=== PATIENT | female | born 1990 | race Caucasian/White ===

== ENCOUNTER 2021-01-16 16:37 | Inpatient (IN) | payer OTHER ==
[2021-01-16] MEDS ORDERED: TERBUTALINE 1 MG/1 ML INJ SUB-Q PRN (18:26)
[2021-01-16] MEDS ORDERED: LIDOCAINE (2%) 20 MG/1 ML VIAL 20 ML MDV INFILTRATI ONE (18:26)
[2021-01-16] MEDS ORDERED: ePHEDrine SULFATE 50 MG/1 ML INJ IV PRN (18:26)
[2021-01-16] MEDS ORDERED: MINERAL OIL 30 ML ORAL LIQD PO PRN (18:26)
[2021-01-16] MEDS ORDERED: DINOPROSTONE 10 MG VAG SUPP VG ONE (18:30)
[2021-01-16] MEDS ORDERED: OXYTOCIN DRIP 30 UNITS/500 ML BAG IV SCH ×2 (19:00)
--- NOTE | 2021-01-16 19:07 | History and Physical Report ---
History of Present Illness Date of examination: 01/16/21 Date of admission: 01/16/21 16:37 History of present illness: PT is a at 38 weeks who was schedule for IOL for CHTN and GDMA1. GBS neg. Past History Past Medical History: asthma, hypertension, other (GDMA1, alpha thalassemia trait, depression (no meds)) Past Surgical History: other (digit removed as an ) - Obstetrical History : 1 Medications and Allergies Allergies Allergy/AdvReac Type Severity Reaction Status Date / Time No Known Allergies Allergy Unverified 01/16/21 17:21 Active Meds: Active Medications Ephedrine Sulfate (Ephedrine Sulfate 50 Mg/1 Ml Inj) 10 mg IV Q2M PRN PRN Reason: Hypotension Oxytocin/Sodium Chloride (Pitocin/Ns 30 Unit/500ml) 30 units in 500 mls @ 2 mls/hr IV TITR TEX; Protocol Lactated Ringer's (Lactated Ringers) 1,000 mls @ 125 mls/hr IV DIRECT TEX Oxytocin/Sodium Chloride (Pitocin/Ns 30 Unit/500ml) 30 units in 500 mls @ 40 mls/hr IV TITR TEX; Protocol Mineral Oil (Mineral Oil 30 Ml Oral Liqd) 30 ml PO QHS PRN PRN Reason: Constipation Terbutaline Sulfate (Terbutaline 1 Mg/1 Ml Inj) 0.25 mg SUB-Q ONCE PRN PRN Reason: Hyperstimulation/Hypertonicity Review of Systems All systems: negative (except HPI) - Vital Signs Vital signs: Vital Signs Temp Pulse Resp BP Pulse Ox 99.1 F 88 18 140/88 97 01/16/21 17:33 01/16/21 17:33 01/16/21 17:33 01/16/21 17:33 01/16/21 17:33 Temp Pulse Resp BP Pulse Ox 99.1 F 94 H 18 140/88 97 01/16/21 17:33 01/16/21 18:59 01/16/21 17:33 01/16/21 17:39 01/16/21 18:59 - Obstetrical FHR: category 1 Cervical Dilatation: 0 (per RN) Cervical Effacement Percentage: 0 Uterine Contraction Pattern: Irregular Results All other labs normal. Assessment and Plan - Patient Problems (1) HTN (hypertension) Current Visit: Yes Status: Acute Plan to address problem: Will start IOL with cervidil. Expectant care. (2) Gestational diabetes Current Visit: Yes Status: Acute Plan to address problem: Will check BG and continue to monitor.
[2021-01-16 19:28] LABS: Hematocrit 37.1 % (30.3-42.9); Hemoglobin 12.4 gm/dl (10.1-14.3)
[2021-01-16] MEDS: LACTATED RINGERS 1,000 ML IV SCH ×2 (20:04→23:37)
[2021-01-17] MEDS ORDERED: BUTORPHANOL 2 MG/1 ML INJ IV PRN (03:40)
[2021-01-17 07:14] LABS: Hemoglobin 12.1 gm/dl (10.1-14.3); Mean Corpuscular HGB Conc 32 % (30-34); Mean Corpuscular Volume 77 fl (79-97); Platelet Count 266 K/mm3 (140-440); Red Blood Count 4.94 M/mm3 (3.65-5.03); Red Cell Distribution Width 15.3 % (13.2-15.2)
[2021-01-17] MEDS: LACTATED RINGERS 1,000 ML IV SCH ×2 (10:41→14:41)
--- NOTE | 2021-01-17 10:42 | Progress Note ---
Assessment and Plan A: IUP@ 38 wks CHTN;GDMA1 GBS neg P: Continue monitoring Pain med/Epidural prn Anticipate progress - Patient Problems (1) Supervision of normal IUP (intrauterine ) in primigravida Current Visit: Yes Status: Acute Subjective - Subjective Date of service: 01/17/21 Principal diagnosis: IUP@ 38 wks, CHTN, GDMA1 Patient reports: movement normal Objective - Vital Signs Vital Signs: Vital Signs - 12hr 01/16/21 01/16/21 01/16/21 22:38 22:39 22:43 Temperature Pulse Rate 89 83 91 H Respiratory Rate Blood Pressure 144/80 O2 Sat by Pulse 95 95 Oximetry 01/16/21 01/16/21 01/16/21 22:48 22:52 22:53 Temperature Pulse Rate 87 88 93 H Respiratory Rate Blood Pressure 146/81 O2 Sat by Pulse 97 96 Oximetry 01/16/21 01/16/21 01/16/21 22:54 22:58 23:03 Temperature Pulse Rate 82 89 85 Respiratory Rate Blood Pressure 142/74 O2 Sat by Pulse 97 96 Oximetry 01/16/21 01/16/21 01/16/21 23:08 23:09 23:13 Temperature Pulse Rate 78 81 84 Respiratory Rate Blood Pressure 133/77 O2 Sat by Pulse 96 96 Oximetry 01/16/21 01/16/21 01/16/21 23:18 23:23 23:25 Temperature Pulse Rate 88 81 82 Respiratory Rate Blood Pressure 141/82 O2 Sat by Pulse 97 97 Oximetry 01/16/21 01/16/21 01/17/21 23:28 23:54 00:09 Temperature Pulse Rate 82 84 83 Respiratory Rate Blood Pressure 120/73 137/72 O2 Sat by Pulse 97 Oximetry 01/17/21 01/17/21 01/17/21 00:23 00:40 00:41 Temperature 98.2 F Pulse Rate 80 81 Respiratory 16 Rate Blood Pressure 140/68 206/76 O2 Sat by Pulse Oximetry 01/17/21 01/17/21 01/17/21 01:16 01:25 01:38 Temperature Pulse Rate 78 75 72 Respiratory Rate Blood Pressure 115/56 129/71 130/74 O2 Sat by Pulse Oximetry 01/17/21 01/17/21 01/17/21 01:54 02:09 02:25 Temperature Pulse Rate 77 85 88 Respiratory Rate Blood Pressure 139/65 127/68 123/74 O2 Sat by Pulse Oximetry 01/17/21 01/17/21 01/17/21 02:40 02:53 03:09 Temperature Pulse Rate 85 86 89 Respiratory Rate Blood Pressure 116/59 125/62 123/65 O2 Sat by Pulse Oximetry 01/17/21 01/17/21 01/17/21 03:24 03:39 03:54 Temperature Pulse Rate 90 90 96 H Respiratory Rate Blood Pressure 123/66 131/74 131/66 O2 Sat by Pulse Oximetry 01/17/21 01/17/21 01/17/21 04:08 04:24 04:38 Temperature Pulse Rate 86 83 94 H Respiratory Rate Blood Pressure 129/66 132/75 131/71 O2 Sat by Pulse Oximetry 01/17/21 01/17/21 01/17/21 04:55 05:10 06:11 Temperature Pulse Rate 85 93 H 88 Respiratory Rate Blood Pressure 124/60 131/73 129/78 O2 Sat by Pulse Oximetry 01/17/21 01/17/21 01/17/21 06:19 06:21 06:26 Temperature Pulse Rate 80 86 97 H Respiratory Rate Blood Pressure 142/78 O2 Sat by Pulse 97 97 Oximetry 01/17/21 01/17/21 01/17/21 06:31 06:36 06:41 Temperature Pulse Rate 88 87 88 Respiratory Rate Blood Pressure O2 Sat by Pulse 97 97 97 Oximetry 01/17/21 01/17/21 01/17/21 07:08 07:13 07:18 Temperature Pulse Rate 95 H 88 88 Respiratory Rate Blood Pressure 144/74 O2 Sat by Pulse 97 97 97 Oximetry 01/17/21 01/17/21 01/17/21 07:23 07:28 07:30 Temperature 100.2 F H Pulse Rate 89 94 H Respiratory Rate Blood Pressure O2 Sat by Pulse 97 98 Oximetry 01/17/21 01/17/21 01/17/21 07:33 07:38 07:43 Temperature Pulse Rate 91 H 94 H 90 Respiratory Rate Blood Pressure O2 Sat by Pulse 97 98 97 Oximetry 01/17/21 01/17/21 01/17/21 07:48 07:53 07:58 Temperature Pulse Rate 79 80 82 Respiratory Rate Blood Pressure O2 Sat by Pulse 97 96 95 Oximetry 01/17/21 01/17/2121 08:03 08:08 08:12 Temperature Pulse Rate 86 83 80 Respiratory Rate Blood Pressure O2 Sat by Pulse 95 95 94 Oximetry 01/17/21 01/17/21 01/17/21 08:13 08:18 08:20 Temperature Pulse Rate 81 81 83 Respiratory Rate Blood Pressure O2 Sat by Pulse 95 95 94 Oximetry 01/17/21 01/17/21 01/17/21 08:23 08:28 08:33 Temperature Pulse Rate 84 81 84 Respiratory Rate Blood Pressure O2 Sat by Pulse 96 96 96 Oximetry 01/17/21 01/17/21 01/17/21 08:38 08:43 08:48 Temperature Pulse Rate 82 89 81 Respiratory Rate Blood Pressure O2 Sat by Pulse 96 97 96 Oximetry 01/17/21 01/17/21 01/17/21 08:53 08:58 09:03 Temperature Pulse Rate 83 85 89 Respiratory Rate Blood Pressure O2 Sat by Pulse 96 96 97 Oximetry 01/17/21 01/17/21 01/17/21 09:08 09:13 09:18 Temperature Pulse Rate 86 88 87 Respiratory Rate Blood Pressure O2 Sat by Pulse 96 97 97 Oximetry 01/17/21 01/17/21 01/17/21 09:23 09:28 09:33 Temperature Pulse Rate 90 86 92 H Respiratory Rate Blood Pressure O2 Sat by Pulse 97 97 96 Oximetry 01/17/21 01/17/21 01/17/21 09:38 09:43 09:48 Temperature Pulse Rate 91 H 81 91 H Respiratory Rate Blood Pressure O2 Sat by Pulse 97 98 98 Oximetry 01/17/21 01/17/21 01/17/21 09:53 10:12 10:17 Temperature Pulse Rate 86 91 H 88 Respiratory Rate Blood Pressure O2 Sat by Pulse 98 97 97 Oximetry 01/17/21 01/17/21 01/17/21 10:22 10:27 10:32 Temperature Pulse Rate 80 89 108 H Respiratory Rate Blood Pressure O2 Sat by Pulse 97 97 97 Oximetry 01/17/21 10:34 Temperature Pulse Rate 63 Respiratory Rate Blood Pressure O2 Sat by Pulse 92 Oximetry - Exam Breasts: normal Abdomen: Present: normal appearance, soft, normal bowel sounds, other (GRAVID) Vulva: both: normal Uterus: Present: normal, other (GRAVID) FHR: auscultation normal, category 1 Uterine Contraction Monitor Mode: External Cervical Dilatation: 3.5 Cervical Effacement Percentage: 60 station: -2 Uterine Contraction Frequency (min): irreg Uterine Contraction Pattern: Irregular Uterine Tone Measurement Phase: Resting Uterine Contraction Intensity: Mild Extremities: normal - Labs Labs: Abnormal Labs 01/17/21 03:37 WBC 14.8 H MCV 77 L MCH 25 L RDW 15.3 H Laboratory Results - last 24 hr 01/16/21 01/16/21 01/16/21 17:51 17:51 20:01 WBC RBC Hgb 12.4 Hct 37.1 MCV MCH MCHC RDW Plt Count POC Glucose 80 Blood Type B POSITIVE Antibody Screen Negative 01/17/21 03:37 WBC 14.8 H RBC 4.94 Hgb 12.1 Hct 38.0 MCV 77 L MCH 25 L MCHC 32 RDW 15.3 H Plt Count 266 POC Glucose Blood Type Antibody Screen
--- NOTE | 2021-01-17 15:19 | Event Note ---
Date: 01/17/21 FHT 142 with mod mandeep and late decels. UC q 3-5/ min with Pitocin @ 6mu. SVE 4- 5/80%/ -2 with calput and molding. IUPC and IFM placed along with resuscitative measures ie. O2, position changes, etc. Dr Nick was notified.
--- NOTE | 2021-01-17 15:20 | Progress Note ---
Subjective - Subjective Date of service: 01/17/21 Principal diagnosis: IUP@ 38 wks, CHTN, GDMA1 Interval history: Patient with IUPC and FSE in place Oxytocin on home secondary to repetitive late variables heart tones recovered to baseline with moderate variability Category 2 tracing Cervix 4 cm with edema on the anterior lip of the cervix vertex with significant molding and caput Suspect asynclitic presentation Plan for operative delivery for failed induction of labor Patient and father the baby agree with plan of care Informed consent obtained N.p.o. Anesthesia notified On hold for OR Chante Nick MD Patient reports: movement normal Objective - Vital Signs Vital Signs: Vital Signs - 12hr 01/17/21 01/17/21 01/17/21 03:24 03:39 03:54 Temperature Pulse Rate 90 90 96 H Blood Pressure 123/66 131/74 131/66 O2 Sat by Pulse Oximetry 01/17/21 01/17/21 01/17/21 04:08 04:24 04:38 Temperature Pulse Rate 86 83 94 H Blood Pressure 129/66 132/75 131/71 O2 Sat by Pulse Oximetry 01/17/21 01/17/21 01/17/21 04:55 05:10 06:11 Temperature Pulse Rate 85 93 H 88 Blood Pressure 124/60 131/73 129/78 O2 Sat by Pulse Oximetry 01/17/21 01/17/21 01/17/21 06:19 06:21 06:26 Temperature Pulse Rate 80 86 97 H Blood Pressure 142/78 O2 Sat by Pulse 97 97 Oximetry 01/17/21 01/17/21 01/17/21 06:31 06:36 06:41 Temperature Pulse Rate 88 87 88 Blood Pressure O2 Sat by Pulse 97 97 97 Oximetry 01/17/21 01/17/21 01/17/21 07:00 07:08 07:13 Temperature 100.2 F H Pulse Rate 82 95 H 88 Blood Pressure 144/74 O2 Sat by Pulse 97 97 Oximetry 01/17/21 01/17/21 01/17/21 07:18 07:23 07:28 Temperature Pulse Rate 88 89 94 H Blood Pressure O2 Sat by Pulse 97 97 98 Oximetry 01/17/21 01/17/21 01/17/21 07:30 07:33 07:38 Temperature 100.2 F H Pulse Rate 91 H 94 H Blood Pressure O2 Sat by Pulse 97 98 Oximetry 01/17/21 01/17/21 01/17/21 07:43 07:48 07:53 Temperature Pulse Rate 90 79 80 Blood Pressure O2 Sat by Pulse 97 97 96 Oximetry 01/17/21 01/17/21 01/17/21 07:58 08:03 08:08 Temperature Pulse Rate 82 86 83 Blood Pressure O2 Sat by Pulse 95 95 95 Oximetry 01/17/21 01/17/21 01/17/21 08:12 08:13 08:18 Temperature Pulse Rate 80 81 81 Blood Pressure O2 Sat by Pulse 94 95 95 Oximetry 01/17/21 01/17/21 01/17/21 08:20 08:23 08:28 Temperature Pulse Rate 83 84 81 Blood Pressure O2 Sat by Pulse 94 96 96 Oximetry 01/17/21 01/17/21 01/17/21 08:33 08:38 08:43 Temperature Pulse Rate 84 82 89 Blood Pressure O2 Sat by Pulse 96 96 97 Oximetry 01/17/21 01/17/21 01/17/21 08:48 08:53 08:58 Temperature Pulse Rate 81 83 85 Blood Pressure O2 Sat by Pulse 96 96 96 Oximetry 01/17/21 01/17/21 01/17/21 09:03 09:08 09:13 Temperature Pulse Rate 89 86 88 Blood Pressure O2 Sat by Pulse 97 96 97 Oximetry 01/17/21 01/17/21 01/17/21 09:18 09:23 09:28 Temperature Pulse Rate 87 90 86 Blood Pressure O2 Sat by Pulse 97 97 97 Oximetry 01/17/21 01/17/21 01/17/21 09:33 09:38 09:43 Temperature Pulse Rate 92 H 91 H 81 Blood Pressure O2 Sat by Pulse 96 97 98 Oximetry 01/17/21 01/17/21 01/17/21 09:48 09:53 10:00 Temperature 98.8 F Pulse Rate 91 H 86 100 H Blood Pressure O2 Sat by Pulse 98 98 Oximetry 01/17/21 01/17/21 01/17/21 10:12 10:17 10:22 Temperature Pulse Rate 91 H 88 80 Blood Pressure O2 Sat by Pulse 97 97 97 Oximetry 01/17/21 01/17/21 01/17/21 10:27 10:32 10:34 Temperature Pulse Rate 89 108 H 63 Blood Pressure O2 Sat by Pulse 97 97 92 Oximetry 01/17/21 01/17/21 01/17/21 10:37 10:42 10:44 Temperature Pulse Rate 89 86 91 H Blood Pressure 142/83 O2 Sat by Pulse 98 98 94 Oximetry 01/17/21 01/17/21 01/17/21 10:47 10:51 10:52 Temperature Pulse Rate 87 92 H 93 H Blood Pressure 142/83 O2 Sat by Pulse 97 97 Oximetry 01/17/21 01/17/21 01/17/21 10:57 11:02 11:07 Temperature Pulse Rate 88 86 85 Blood Pressure O2 Sat by Pulse 98 97 97 Oximetry 01/17/21 01/17/21 01/17/21 11:12 11:17 11:22 Temperature Pulse Rate 93 H 84 88 Blood Pressure O2 Sat by Pulse 96 97 98 Oximetry 01/17/21 01/17/21 01/17/21 11:27 11:32 11:37 Temperature Pulse Rate 87 86 88 Blood Pressure O2 Sat by Pulse 97 97 97 Oximetry 01/17/21 01/17/21 01/17/21 11:42 11:47 11:52 Temperature Pulse Rate 85 83 88 Blood Pressure O2 Sat by Pulse 98 98 97 Oximetry 01/17/21 01/17/21 01/17/21 11:57 12:02 12:07 Temperature Pulse Rate 84 92 H 88 Blood Pressure O2 Sat by Pulse 97 97 97 Oximetry 01/17/21 01/17/21 01/17/21 12:12 12:17 12:22 Temperature Pulse Rate 83 86 85 Blood Pressure O2 Sat by Pulse 97 97 97 Oximetry 01/17/21 01/17/21 01/17/21 12:27 12:32 12:37 Temperature Pulse Rate 87 81 85 Blood Pressure O2 Sat by Pulse 97 97 96 Oximetry 01/17/21 01/17/21 01/17/21 12:42 12:47 12:52 Temperature Pulse Rate 86 89 91 H Blood Pressure O2 Sat by Pulse 97 97 98 Oximetry 01/17/21 01/17/21 01/17/21 13:17 13:47 13:52 Temperature Pulse Rate 101 H 89 91 H Blood Pressure 141/83 O2 Sat by Pulse 97 96 Oximetry 01/17/21 01/17/21 01/17/21 13:57 14:02 14:07 Temperature Pulse Rate 86 80 78 Blood Pressure O2 Sat by Pulse 97 98 98 Oximetry 01/17/21 01/17/21 01/17/21 14:12 14:16 14:17 Temperature Pulse Rate 100 H 79 90 Blood Pressure 162/81 121/58 O2 Sat by Pulse 97 96 Oximetry 01/17/21 01/17/21 01/17/21 14:22 14:27 14:32 Temperature Pulse Rate 86 83 87 Blood Pressure O2 Sat by Pulse 96 98 98 Oximetry 01/17/21 01/17/21 01/17/21 14:34 14:37 14:42 Temperature Pulse Rate 95 H 85 83 Blood Pressure O2 Sat by Pulse 90 100 99 Oximetry 01/17/21 01/17/21 01/17/21 14:47 14:52 14:57 Temperature Pulse Rate 82 79 70 Blood Pressure O2 Sat by Pulse 100 99 100 Oximetry 01/17/21 01/17/21 01/17/21 15:02 15:07 15:12 Temperature Pulse Rate 87 74 89 Blood Pressure O2 Sat by Pulse 100 100 100 Oximetry 01/17/21 15:17 Temperature Pulse Rate 83 Blood Pressure O2 Sat by Pulse 100 Oximetry - Labs Labs: Abnormal Labs 01/17/21 03:37 WBC 14.8 H MCV 77 L MCH 25 L RDW 15.3 H Laboratory Results - last 24 hr 01/16/21 01/16/21 01/16/21 17:51 17:51 20:01 WBC RBC Hgb 12.4 Hct 37.1 MCV MCH MCHC RDW Plt Count POC Glucose 80 Coronavirus (PCR) Blood Type B POSITIVE Antibody Screen Negative 01/17/21 01/17/21 01/17/21 00:39 03:37 06:41 WBC 14.8 H RBC 4.94 Hgb 12.1 Hct 38.0 MCV 77 L MCH 25 L MCHC 32 RDW 15.3 H Plt Count 266 POC Glucose 90 86 Coronavirus (PCR) Blood Type Antibody Screen 01/17/21 Unknown WBC RBC Hgb Hct MCV MCH MCHC RDW Plt Count POC Glucose Coronavirus (PCR) Negative Blood Type Antibody Screen
--- NOTE | 2021-01-17 15:21 | Procedure Note ---
OB Delivery Note - Delivery Date of Delivery: 01/17/21 Surgeon: ELO MESSINA Estimated blood loss: other (800ml) - Section Preop diagnosis: other (failed IOL, suspect asynclitic presentation) Postop diagnosis: same section procedure: primary low transverse Complications: none Narrative: Preop diagnosis: IUP at 38.1 weeks, failed induction of labor for suspected malpresentation Postop diagnosis: Same, delivered Procedure: Primary low transverse section via Pfannenstiel incision Surgeon: Dr. Elo Messina Anesthesia spinal Complications none EBL 800 ml IV fluids thousand mL Urine output 300 mL, clear Drains Patterson to gravity Findings: Viable female with weight 2522gms and 8/9, normal uterus tubes and ovaries bilaterally Procedure: Patient was consented in 2011 for opertive delivery, then taken to the operating room where she received excellent spinal anesthesia. She was then placed in the dorsal supine position with a leftward tilt. The abdomen was prepped and draped in a sterile fashion, and a timeout was verified. Adequate anesthesia was confirmed prior to the skin incision. A Pfannenstiel skin incision was made with a scalpel taken down to the underlying structures and the fascia was incised in the midline. The incision was extended laterally with cu rved Roque scissors, the superior and inferior aspects of the fascial incisions were grasped with Collin clamps and the rectus muscles dissected sharply. The abdomen was entered bluntly in the midline carried down inferiorly with good visualization of the bladder. The vesicouterine peritoneum was tented with Latvian forceps and incised in the midline with Metzenbaum scissors and the vesicouterine peritoneum taken down sharply. Bladder blade was inserted, the uterine incision was made sharply with a scalpel. The inferior and superior aspect of the uterine incisions were extended bluntly, the baby's head was delivered atraumatically. The remainder of the delivery was uncomplicated, no nuchal cord. The cord was clamped and cut and baby handed to waiting NICU team. An intact placenta with three-vessel cord delivered manually. The uterus was then cleared of all clots and debris and the uterus exteriorized. The uterine incision was closed with 2 layers of 0 chromic with excellent hemostasis. The abdomen was then irrigated with warm normal saline and the uterus placed back into the abdomen atraumatically. A second look at the uterine incision assured hemostasis. The peritoneum was closed with 3-0 Vicryl, the rectus muscles approximated with 3-0 Vicryl, and the fascia closed with 0 Vicryl in the usual fashion. The subcuticular structures were closed with interrupted sutures of 3- 0 Vicryl and the skin closed with 4-0 Monocryl. A pressure dressing was applied. All sponge needle and instrument counts were correct x2. There were no complications. Mom and baby stable to PACU. EBL 600mL Chante Messina MD
[2021-01-17] MEDS ORDERED: FAMOTIDINE 20 MG/2 ML INJ IV ONE (15:38)
[2021-01-17] MEDS ORDERED: METOCLOPRAMIDE 10 MG/2 ML INJ IV ONE (15:38)
[2021-01-17] MEDS ORDERED: BICITRA ORAL LIQD 30ML PO ONE (15:38)
--- NOTE | 2021-01-17 15:38 | Anesthesia Day of Surgery ---
Anesthesia Day of Surgery - Day of Surgery Patient Examined: Yes Patient H&P Reviewed: Yes Patient is NPO: Yes Beta Blockers: No Cardiac Clearance: No Pulmonary Clearance: No Shekhar's Test: N/A
[2021-01-17] MEDS ORDERED: HYDROmorphone 1 MG/1 ML INJ IV PRN (15:39)
[2021-01-17] MEDS ORDERED: ONDANSETRON 4 MG/2 ML INJ IV PRN ×2 (15:39→17:45)
[2021-01-17] MEDS ORDERED: NALOXONE 0.4 MG/1 ML INJ IV PRN ×2 (15:39→17:45)
--- NOTE | 2021-01-17 15:39 | Anesthesia Consultation ---
Anesthesia Consult and Med Hx Date of service: 01/17/21 - Airway Anesthetic Teeth Evaluation: Poor ROM Head & Neck: Adequate Mental/Hyoid Distance: Adequate Mallampati Class: Class III Intubation Access Assessment: Possibly Difficult - Pulmonary Exam CTA: Yes - Cardiac Exam Cardiac Exam: RRR - Pre-Operative Health Status ASA Pre-Surgery Classification: ASA3 Proposed Anesthetic Plan: Spinal - Pulmonary Hx Smoking: No Hx Asthma: Yes (last attach many years ago) Hx Respiratory Symptoms: No SOB: No COPD: No Home Oxygen Therapy: No Hx Pneumonia: No Hx Sleep Apnea: No - Cardiovascular System Hx Hypertension: Yes Hx Coronary Artery Disease: No Hx Heart Attack/AMI: No Hx Angina: No Hx Percutaneous Transluminal Coronary Angioplasty (PTCA): No Hx Cardia Arrhythmia: No Hx Pacemaker: No Hx Internal Defibrillator: No Hx Valvular Heart Disease: No Hx Heart Murmur: No Hx Peripheral Vascular Disease: No - Central Nervous System Hx Neuromuscular Disorder: No Hx Seizures: No CVA: No Hx Back Pain: Yes Hx Psychiatric Problems: No - Gastrointestinal Hx Ulcer: No Hx Gastroesophageal Reflux Disease: Yes - Endocrine Hx Renal Disease: No Hx End Stage Renal Disease: No Hx Cirrhosis: No Hx Liver Disease: No Hx Insulin Dependent Diabetes: No Hx Non-Insulin Dependent Diabetes: Yes Hx Thyroid Disease: No Hx Hypothyroidism: No Hx Hyperthyroidism: No - Hematic Hx Anemia: No Hx Sickle Cell Disease: No - Other Systems Hx Alcohol Use: No Hx Substance Use: No Hx Cancer: No Hx Obesity: Yes
[2021-01-17] MEDS ORDERED: LACTATED RINGERS 1,000 ML IV SCH (15:45)
[2021-01-17] MEDS ORDERED: ONDANSETRON 4 MG/2 ML INJ ONE ×2 (15:46)
[2021-01-17] MEDS ORDERED: ceFAZolin/Water 2 GM/20 ML 2 GM/20 ML SYRINGE IV ONE (16:04)
[2021-01-17] MEDS ORDERED: LACTATED RINGERS 1,000 ML ONE (16:20)
[2021-01-17] MEDS ORDERED: PHENYLEPHRINE/NS 1,000 MCG/10 ML SYRINGE (OR USE) IV ONE (16:33)
[2021-01-17] MEDS ORDERED: ceFAZolin/STERILE WATER 2 GM/20 ML SYRINGE IV ONE (16:49)
[2021-01-17] MEDS ORDERED: MORPHINE 4 MG/1 ML INJ IV PRN (17:45)
[2021-01-17] MEDS ORDERED: MAGNESIUM HYDROXIDE (MOM) ORAL LIQD UDC PO PRN (17:45)
[2021-01-17] MEDS ORDERED: WITCH HAZEL/ GLYCERIN PAD TP PRN (17:45)
[2021-01-17] MEDS ORDERED: SIMETHICONE 80 MG CHEW TAB PO PRN (17:45)
[2021-01-17] MEDS ORDERED: LANOLIN/ZINC/DIMETHICONE (LANSINOH) 7 GM TP PRN (17:45)
[2021-01-17] MEDS ORDERED: SENNOSIDES 8.6 MG TAB PO PRN (17:45)
[2021-01-17] MEDS ORDERED: MORPHINE 2 MG/1 ML INJ IV PRN (17:45)
[2021-01-17] MEDS ORDERED: KETOROLAC 30 MG/1 ML INJ IV PRN (17:45)
[2021-01-17] MEDS ORDERED: IBUPROFEN 600 MG TAB PO PRN (17:45)
--- NOTE | 2021-01-17 17:59 | Progress Note ---
Spinal Anesthesia Block - Spinal Anesthesia Block Start Time: 16:24 Stop Time: 16:30 Performed by:: BÁRBARA ARIAS Procedure: Patient IDed, H&P reviewed, all questions and concerns were answered, and consent was signed. Timeout was performed at bedside. Patient in sitting position. Sterile prep and drape was performed. [3] ml of 1% lidocaine skin wheal at L[3]- L [4]. Needle introducer advanced. 25 gauge spinal needle advanced. Clear, free flowing CSF. negative blood, negative paresthesia. Spinal dose given. All needles removed. Patient tolerated procedure.
[2021-01-17] MEDS ORDERED: OXYTOCIN DRIP 30 UNITS/500 ML BAG IV SCH (18:00)
[2021-01-18] MEDS: LACTATED RINGERS 1,000 ML IV SCH (04:01)
[2021-01-18 08:15] LABS: Hematocrit 36.1 % (30.3-42.9); Hemoglobin 11.8 gm/dl (10.1-14.3)
[2021-01-18] MEDS: HYDROcodone/ACETAMINOPHEN 5-325 MG TAB PO PRN ×2 (09:08→16:18)
[2021-01-18] MEDS: IBUPROFEN 800 MG TAB PO PRN ×2 (11:38→18:18)
--- NOTE | 2021-01-18 19:49 | Progress Note ---
Assessment and Plan POD#1 C/Section doing well 1. Routine postop care 2. Dressing removed and pt taught how to keep same clean and dry 3. Pt encouraged to ambulate when pain relieved by meds Subjective Date of service: 01/18/21 Principal diagnosis: IUP@ 38 wks, CHTN, GDMA1 Interval history: pt admits to voiding without difficulty, pain controlled with meds but she still moves slowly out of bed. pt admits to passing flatus and vaginal bleeding less than a period. pt tolerates regular diet without N/V Objective - Constitutional Vitals: Vital Signs - 12hr 01/18/21 01/18/21 01/18/21 08:50 09:08 11:38 Temperature 98.2 F Pulse Rate 87 80 Respiratory 18 18 18 Rate Blood Pressure 125/55 Blood Pressure 118/76 [Left] O2 Sat by Pulse 100 Oximetry 01/18/21 01/18/21 01/18/21 12:01 16:18 16:50 Temperature 98.6 F 98.4 F Pulse Rate 92 H 84 Respiratory 18 18 18 Rate Blood Pressure Blood Pressure 125/86 115/77 [Left] O2 Sat by Pulse 100 98 Oximetry General appearance: Present: no acute distress - Respiratory Respiratory effort: normal - Breasts Breasts: normal - Cardiovascular Rhythm: regular Extremities: no ischemia - Gastrointestinal General gastrointestinal: Present: non-tender (obese; Incision with dressing intact and when same removed by me steristrips and dermabond in place and dry towlette placed below pannus) - Genitourinary Female genitourinary: other (Lochia scant) - Neurologic Neurologic: moves all extremities - Psychiatric Psychiatric: appropriate mood/affect - Labs CBC & Chem 7: 01/18/21 07:21 Medications & Allergies - Medications Allergies/Adverse Reactions: Allergies No Known Allergies Allergy (Unverified 01/16/21 17:21) Home Medications: Home Medications Medication Instructions Recorded Confirmed Last Taken Type Ibuprofen [Motrin] 600 mg PO Q8H PRN #30 tablet 01/17/21 Unknown Rx oxyCODONE /ACETAMINOPHEN [Percocet 1 tab PO Q6HR PRN #20 tablet 01/17/21 Unknown Rx 5/325] Active Medications: Generic Name Dose Route Start Last Admin Trade Name Freq PRN Reason Stop Dose Admin Hydrocodone Bitart/Acetaminophen 1 each 01/17/21 17:45 01/18/21 16:18 Hydrocodone/Acetaminophen 5-325 Mg Tab PO 1 each Q6H PRN Administration Pain, Moderate (4-6) Butorphanol Tartrate 2 mg 01/17/21 03:40 Butorphanol 2 Mg/1 Ml Inj IV Q2H PRN Labor Pain Ephedrine Sulfate 10 mg 01/16/21 18:26 Ephedrine Sulfate 50 Mg/1 Ml Inj IV Q2M PRN Hypotension Hydromorphone HCl 0.5 mg 01/17/21 15:39 Hydromorphone 1 Mg/1 Ml Inj IV Q5M PRN BREAK Oxytocin/Sodium Chloride 30 units in 500 mls @ 2 mls/hr 01/16/21 19:00 01/17/21 14:30 Pitocin/Ns 30 Unit/500ml IV 0 ml/hr TITR TEX 0 mls/hr Titration Protocol Lactated Ringer's 1,000 mls @ 125 mls/hr 01/16/21 18:30 01/18/21 04:01 Lactated Ringers IV 999 mls/hr DIRECT TEX Administration Oxytocin/Sodium Chloride 30 units in 500 mls @ 40 mls/hr 01/16/21 19:00 Pitocin/Ns 30 Unit/500ml IV TITR TEX Protocol Oxytocin/Sodium Chloride 30 units in 500 mls @ 40 mls/hr 01/17/21 18:00 Pitocin/Ns 30 Unit/500ml IV TITR [facility] Protocol Ibuprofen 800 mg 01/17/21 17:45 01/18/21 18:18 Ibuprofen 800 Mg Tab PO 800 mg Q6H PRN Administration Pain, Mild (1-3) Ketorolac Tromethamine 30 mg 01/17/21 17:45 01/18/21 02:09 Ketorolac 30 Mg/1 Ml Inj IV 01/22/21 17:44 30 mg Q6H PRN Administration Pain, Moderate (4-6) Labetalol HCl 100 mg 01/16/21 22:00 01/18/21 11:38 Labetalol 100 Mg Tab PO 100 mg BID TEX Administration Magnesium Hydroxide 30 ml 01/17/21 17:45 Magnesium Hydroxide (Mom) Oral Liqd Udc PO QHS PRN Constip Unrelieved By Senna Mineral Oil 30 ml 01/16/21 18:26 Mineral Oil 30 Ml Oral Liqd PO QHS PRN Constipation Morphine Sulfate 2 mg 01/17/21 17:45 Morphine 2 Mg/1 Ml Inj IV Q4H PRN Pain, Moderate (4-6) Morphine Sulfate 4 mg 01/17/21 17:45 01/17/21 22:33 Morphine 4 Mg/1 Ml Inj IV 4 mg Q4H PRN Administration Pain , Severe (7-10) Multi-Ingredient Ointment 1 applic 01/17/21 17:45 Lanolin/Zinc/Dimethicone (Lansinoh) 7 Gm TP PRN PRN dryness/cracking Naloxone HCl 0.1 mg 01/17/21 17:45 Naloxone 0.4 Mg/1 Ml Inj IV Q2MIN PRN Res Rate </= 8 or 02 SAT < 92% Ondansetron HCl 4 mg 01/17/21 17:45 Ondansetron 4 Mg/2 Ml Inj IV Q8H PRN Nausea And Vomiting Senna 17.2 mg 01/17/21 17:45 Sennosides 8.6 Mg Tab PO QHS PRN Constipation Simethicone 80 mg 01/17/21 17:45 Simethicone 80 Mg Chew Tab PO Q6H PRN Gas pain Sodium Chloride 10 ml 01/17/21 18:00 Sodium Chloride 0.9% 10 Ml Flush Syringe IV PRN TEX Terbutaline Sulfate 0.25 mg 01/16/21 18:26 Terbutaline 1 Mg/1 Ml Inj SUB-Q ONCE PRN Hyperstimulation/Hypertonicity Witch Charissa/Glycerin 1 each 01/17/21 17:45 Witch Charissa/ Glycerin Pad TP PRN PRN Hemorrhoids/cleansing/soothing
[2021-01-19] MEDS: HYDROcodone/ACETAMINOPHEN 5-325 MG TAB PO PRN ×2 (03:21→17:55)
--- NOTE | 2021-01-19 06:41 | Progress Note ---
Assessment and Plan A: /postop day 2 S/P primary LTCS. P: Encouraged patient to ambulate in halls today. Continue routine /postop care. Anticipate discharge home tomorrow if patient continues to do well. Subjective - Subjective Date of service: 01/19/21 Principal diagnosis: /postop day 2 S/P primary LTCS Interval history: Doing well. Patient reports: appetite normal, voiding normally, pain well controlled, flatus, ambulating normally, no dizzy ambulation, no nauseated [place]: doing well Objective - Vital Signs Latest vital signs: Vital Signs Temp Pulse Resp BP BP Pulse Ox 01/19/21 03:21 14 01/19/21 00:27 86 123/83 01/18/21 16:50 98.4 F 84 18 115/77 98 01/18/21 16:18 18 01/18/21 12:01 98.6 F 92 H 18 125/86 100 01/18/21 11:38 80 18 125/55 01/18/21 09:08 18 01/18/21 08:50 98.2 F 87 18 118/76 100 Intake and Output 01/18/21 01/18/21 01/19/21 15:59 23:59 07:59 Intake Total 480 300 Output Total 100 Balance 380 300 Intake: Oral 480 Intake, Free Water 300 Output: Urine 100 Void 100 Other: Total, Intake Amount 240 Total, Output Amount 50 # Voids Void 1 - Exam Cardiovascular: Present: Regular rate, No murmurs Lungs: Present: Clear to auscultation Abdomen: Present: normal appearance, soft, normal bowel sounds. Absent: distention, tenderness, guarding, rigidity Uterus: Present: normal, firm, fundal height below umbilicus. Absent: bogginess, tenderness Extremities: Present: edema (mild bilateral pedal edema) Incision: Present: normal, dry, intact
[2021-01-19] MEDS: IBUPROFEN 800 MG TAB PO PRN (09:15)
[2021-01-20] MEDS: IBUPROFEN 800 MG TAB PO PRN (05:10)
--- NOTE | 2021-01-20 08:33 | Progress Note ---
Assessment and Plan POD#3 C/Section, CHTN and obesity 1. Discharge home and pt to make appt with [facility] in 1wk where she goes to clinic 2. Pt reminded wound care with dry towelette changed at least twice a day 3. Scripts for percocet and motrin and labetalol given 4. HTN precaution also given all questions encouraged and answered Subjective Date of service: 01/20/21 Principal diagnosis: POD#3 C/Section, CHTN, Morbid Obesity Interval history: Pt has been ambulant, passing gas, breast feeding, voiding without difficulty and passing gas. Pt is ready to go home. Pt has received regular diet from home and tolerated the liquid diet here. Pt did not request any food here and diet changed this morning with regular diet. Denies N/V/F/C Objective - Constitutional Vitals: Vital Signs - 12hr 01/19/21 01/20/21 01/20/21 22:08 00:50 05:10 Temperature 98.0 F Pulse Rate 78 84 Respiratory 16 20 Rate Blood Pressure 136/83 134/75 O2 Sat by Pulse 96 Oximetry General appearance: Present: no acute distress - Respiratory Respiratory effort: normal Extremities: No edema - Gastrointestinal General gastrointestinal: Present: non-tender, other (obese) - Genitourinary Female genitourinary: other (Fundus firm, non-tender and 2cm below the umbilicus; Incision C and dry and slightly damp with the same towlette in place x2days; pt reminded to change it when it get damp at least BID) - Labs CBC & Chem 7: 01/18/21 07:21 Medications & Allergies - Medications Allergies/Adverse Reactions: Allergies No Known Allergies Allergy (Unverified 01/16/21 17:21) Home Medications: Home Medications Medication Instructions Recorded Confirmed Last Taken Type Ibuprofen [Motrin] 600 mg PO Q8H PRN #30 tablet 01/17/21 Unknown Rx oxyCODONE /ACETAMINOPHEN [Percocet 1 tab PO Q6HR PRN #20 tablet 01/17/21 Unknown Rx 5/325] Active Medications: Generic Name Dose Route Start Last Admin Trade Name Freq PRN Reason Stop Dose Admin Hydrocodone Bitart/Acetaminophen 1 each 01/17/21 17:45 01/19/21 17:55 Hydrocodone/Acetaminophen 5-325 Mg Tab PO 1 each Q6H PRN Administration Pain, Moderate (4-6) Butorphanol Tartrate 2 mg 01/17/21 03:40 Butorphanol 2 Mg/1 Ml Inj IV Q2H PRN Labor Pain Ephedrine Sulfate 10 mg 01/16/21 18:26 Ephedrine Sulfate 50 Mg/1 Ml Inj IV Q2M PRN Hypotension Hydromorphone HCl 0.5 mg 01/17/21 15:39 Hydromorphone 1 Mg/1 Ml Inj IV Q5M PRN BREAK Oxytocin/Sodium Chloride 30 units in 500 mls @ 2 mls/hr 01/16/21 19:00 01/17/21 14:30 Pitocin/Ns 30 Unit/500ml IV 0 ml/hr TITR TEX 0 mls/hr Titration Protocol Lactated Ringer's 1,000 mls @ 125 mls/hr 01/16/21 18:30 01/18/21 04:01 Lactated Ringers IV 999 mls/hr DIRECT TEX Administration Oxytocin/Sodium Chloride 30 units in 500 mls @ 40 mls/hr 01/16/21 19:00 Pitocin/Ns 30 Unit/500ml IV TITR TEX Protocol Oxytocin/Sodium Chloride 30 units in 500 mls @ 40 mls/hr 01/17/21 18:00 Pitocin/Ns 30 Unit/500ml IV TITR TEX Protocol Ibuprofen 800 mg 01/17/21 17:45 01/20/21 05:10 Ibuprofen 800 Mg Tab PO 800 mg Q6H PRN Administration Pain, Mild (1-3) Ketorolac Tromethamine 30 mg 01/17/21 17:45 01/18/21 02:09 Ketorolac 30 Mg/1 Ml Inj IV 01/22/21 17:44 30 mg Q6H PRN Administration Pain, Moderate (4-6) Labetalol HCl 100 mg 01/16/21 22:00 01/19/21 22:08 Labetalol 100 Mg Tab PO 100 mg BID TEX Administration Magnesium Hydroxide 30 ml 01/17/21 17:45 Magnesium Hydroxide (Mom) Oral Liqd Udc PO QHS PRN Constip Unrelieved By Senna Mineral Oil 30 ml 01/16/21 18:26 Mineral Oil 30 Ml Oral Liqd PO QHS PRN Constipation Morphine Sulfate 2 mg 01/17/21 17:45 Morphine 2 Mg/1 Ml Inj IV Q4H PRN Pain, Moderate (4-6) Morphine Sulfate 4 mg 01/17/21 17:45 01/17/21 22:33 Morphine 4 Mg/1 Ml Inj IV 4 mg Q4H PRN Administration Pain , Severe (7-10) Multi-Ingredient Ointment 1 applic 01/17/21 17:45 Lanolin/Zinc/Dimethicone (Lansinoh) 7 Gm TP PRN PRN dryness/cracking Naloxone HCl 0.1 mg 01/17/21 17:45 Naloxone 0.4 Mg/1 Ml Inj IV Q2MIN PRN Res Rate </= 8 or 02 SAT < 92% Ondansetron HCl 4 mg 01/17/21 17:45 Ondansetron 4 Mg/2 Ml Inj IV Q8H PRN Nausea And Vomiting Senna 17.2 mg 01/17/21 17:45 Sennosides 8.6 Mg Tab PO QHS PRN Constipation Simethicone 80 mg 01/17/21 17:45 Simethicone 80 Mg Chew Tab PO Q6H PRN Gas pain Sodium Chloride 10 ml 01/17/21 18:00 Sodium Chloride 0.9% 10 Ml Flush Syringe IV PRN TEX Terbutaline Sulfate 0.25 mg 01/16/21 18:26 Terbutaline 1 Mg/1 Ml Inj SUB-Q ONCE PRN Hyperstimulation/Hypertonicity Witch Charissa/Glycerin 1 each 01/17/21 17:45 Witch Charissa/ Glycerin Pad TP PRN PRN Hemorrhoids/cleansing/soothing
--- NOTE | 2021-01-20 08:45 | Discharge Summary ---
Providers - Providers Date of Admission: 01/16/21 16:37 Date of discharge: 01/20/21 Attending physician: DOUGLAS ZULETA Primary care physician: DOUGLAS ZULETA Hospitalization Reason for admission: induction of labor, IUP at term, other (Chronic HTN and GDMA1) Delivery: (done for Failed induction and non-reassuring FHR) Procedure: section, primary low transverse Incision: normal Discharge diagnosis: IUP at term delivered (ch), other (Chronic HTN, Morbid Obesity) baby: female Hospital course: IUP at 38wks admitted for scheduled induction of labor due to chronic Hypertension and GDMA1. Pt had primary section due to NRFHR and failed induction. course uncomplicated and pt maintained normal BP with labetalol 100mg bid. Condition at discharge: Good Disposition: DC-01 TO HOME OR SELFCARE - Discharge Diagnoses (1) Chronic hypertension Status: Chronic (2) Morbid obesity Status: Chronic (3) Delivery by section Status: Acute Plan - Discharge Medications Prescriptions: labetaloL [Labetalol 100mg TAB] 100 mg PO BID 30 Days #60 tablet Ibuprofen [Motrin] 600 mg PO Q8H PRN #30 tablet PRN Reason: Pain oxyCODONE /ACETAMINOPHEN [Percocet 5/325] 1 tab PO Q6HR PRN #20 tablet PRN Reason: Pain - Provider Discharge Summary Additional instructions: [] Smoking cessation referral if applicable(refer to patient education folder for contact #) [] Refer to [facility] Booklet Call your doctor immediately for: * Fever > 100.5 * Heavy vaginal bleeding ( >1 pad per hour) * Severe persistent headache * Shortness of breath * Reddened, hot, painful area to leg or breast * Drainage or odor from incision. * Keep incision clean and dry at all times and follow doctor's instructions regarding bathing/showering - Follow up plan Follow up: DOUGLAS ZULETA MD [Primary Care Provider] - 7 Days
[2021-01-20 12:44] VITALS: BP 112/73
== END 2021-01-20 13:10 | disposition home or self-care (01) | DRG 772 ==
LOC: LD 16:37 → OB 01-17 19:40
PROVIDERS: ADMIT Obstetrics & Gynecology; ATTEND Obstetrics & Gynecology
PROC: 10D00Z1 Extraction of Products of Conception, Low, Open Approach (ICD-10-PCS; principal; 2021-01-16)
PROC: 10H07YZ Insertion of Other Device into Products of Conception, Via Natural or Artificial Opening (ICD-10-PCS; 2021-01-16)
PROC: 3E033VJ Introduction of Other Hormone into Peripheral Vein, Percutaneous Approach (ICD-10-PCS; 2021-01-16)
DX: O61.9 Failed induction of labor, unspecified (principal); O10.92 Unspecified pre-existing hypertension complicating childbirth; O99.12 Other diseases of the blood and blood-forming organs and certain disorders involving the immune mechanism complicating childbirth; O99.52 Diseases of the respiratory system complicating childbirth; O99.344 Other mental disorders complicating childbirth; O99.214 Obesity complicating childbirth; D56.3 Thalassemia minor; K21.9 Gastro-esophageal reflux disease without esophagitis; O24.429 Gestational diabetes mellitus in childbirth, unspecified control; Z3A.38 38 weeks gestation of pregnancy; Z37.0 Single live birth; Z79.84 Long term (current) use of oral hypoglycemic drugs; Z20.822 Contact with and (suspected) exposure to COVID-19
CPT/HCPCS: 36415; 59025; 59200; 82962; 85014; 85018; 85027; 86850; 86900; 86901; 96360; 96361; G0378; J0690; J1885; J2270; J2370; J2405; J2590; J2765; J3490; J7120; U0003